=== PATIENT | female | born 1985 | race Caucasian/White ===

== ENCOUNTER 2021-01-22 09:58 | Outpatient (CLI) | payer OTHER | END 2021-01-22 10:16 | disposition home or self-care (01) | LOC: SONOGRAMA 09:58 → RX STUDY 10:45 | PROVIDERS: ATTEND Specialist | DX: N80.8 Other endometriosis (principal); R10.2 Pelvic and perineal pain; D25.9 Leiomyoma of uterus, unspecified; N80.2 Endometriosis of fallopian tube ==